=== PATIENT | male | born 1945 | race Caucasian/White ===

== ENCOUNTER → 2022-03-22 | Outpatient (CLI) | payer MEDICARE ==
[~2022-03-22] MED LIST: LISINOPRIL10 MG PO; ONE-TABLET-DAI1 EACH PO; PRAVASTATIN SOD40 MG PO; TYLENOL W/CODEIN1 EA PO; VITAMIN B12 PO
== END ==
LOC: KOH-I 08:04
DX: M54.14 Radiculopathy, thoracic region (principal)
CPT/HCPCS: 72146

== ENCOUNTER → 2022-03-30 | Outpatient (CLI) | payer MEDICARE | LOC: KOH-I 09:56 | DX: M54.6 Pain in thoracic spine (principal); G89.18 Other acute postprocedural pain; C34.32 Malignant neoplasm of lower lobe, left bronchus or lung | CPT/HCPCS: 72128 ==

== ENCOUNTER → 2022-04-05 | Outpatient (CLI) | payer MEDICARE | LOC: EMI 10:14 | DX: M54.6 Pain in thoracic spine (principal); G89.18 Other acute postprocedural pain; C34.32 Malignant neoplasm of lower lobe, left bronchus or lung; M25.80 Other specified joint disorders, unspecified joint | CPT/HCPCS: 72157; A9577 ==

== ENCOUNTER → 2022-05-17 | Day surgery (SDC) | payer MEDICARE ==
[~2022-05-17] MED LIST changes: +AMBIEN10 MG PO; +FLOMAX 0.4 MG0.4 MG PO; +PHENERGAN 25 MG25 M1 PO; +ROXICODONE5 MG PO
[2022-05-17 07:29] LABS: BUN/CREATININE RATIO 18 (0-10)
== END | disposition home or self-care (01) ==
LOC: OR 05:56
PROVIDERS: Surgery
DX: C34.90 Malignant neoplasm of unspecified part of unspecified bronchus or lung (principal); M54.6 Pain in thoracic spine; I25.10 Atherosclerotic heart disease of native coronary artery without angina pectoris; I10 Essential (primary) hypertension; K21.9 Gastro-esophageal reflux disease without esophagitis; J44.9 Chronic obstructive pulmonary disease, unspecified; Z87.891 Personal history of nicotine dependence; Z79.899 Other long term (current) drug therapy; Z88.0 Allergy status to penicillin; Z88.1 Allergy status to other antibiotic agents
CPT/HCPCS: 36415; 77001; 80048; 93005; C1769; C1788; J0690; J1642; J2001; J2370; J2405; J2704; J3010; J7040